=== PATIENT | male | born 1940 | race Caucasian/White ===

== ENCOUNTER 2024-05-20 12:49 | Outpatient (CLI) | payer MEDICARE | END 2024-05-20 12:50 | disposition home or self-care (01) | LOC: CSHRAD 12:49 | PROVIDERS: ATTEND Internal Medicine | DX: J40 Bronchitis, not specified as acute or chronic (principal) | CPT/HCPCS: 71046 ==

== ENCOUNTER 2025-03-11 08:24 | Outpatient (CLI) | payer MEDICARE | END 2025-03-11 08:25 | disposition home or self-care (01) | LOC: CSHCT 08:24 | PROVIDERS: ATTEND Internal Medicine | DX: R91.1 Solitary pulmonary nodule (principal); M89.8X8 Other specified disorders of bone, other site | CPT/HCPCS: 71250 ==